=== PATIENT | female | born 1990 | race Two or more races ===

== ENCOUNTER 2018-05-12 16:15 | Inpatient (IN) | payer MEDICAID ==
[2018-05-12 16:35] VITALS: BMI 25.4
[2018-05-23] MEDS ORDERED: Levofloxacin 500 mg/D5W 100 ml Premix Bag ONE (08:51)
[2018-05-23] MEDS ORDERED: Sodium Chloride 0.9% 100 ML ONE (08:52)
[2018-05-23] MEDS ORDERED: cefTRIAXone\\ROCEPHIN 1 GM VIAL ONE (08:52)
[2018-05-23] MEDS ORDERED: Midazolam HCl 2 mg/2 ml Vial ONE ×2 (10:42→11:41)
[2018-05-23] MEDS ORDERED: Fentanyl 100 MCG/2 ML VIAL ONE (10:42)
--- NOTE | 2018-05-23 11:18 | RAD ---
ABDOMEN 1 VIEW: Date: 05/23/18 HISTORY: Staghorn calculus. COMPARISON: None. FINDINGS: Left-sided nephroureteral stent is in place and in good position. Multiple large calculi projecting o won left renal pelvis. Possible calculus projecting over the right renal pelvis. Moderate volume stool burden. IMPRESSION: 1. Satisfactory position of left nephroureterostomy catheter. 2. Large left-sided renal pelvis calculi and possible right renal calculi. POS: [facility]
[2018-05-23] MEDS ORDERED: Iothalamate Meglumine 60% 50 ML VIAL FS ONE (11:37)
--- NOTE | 2018-05-23 13:06 | OP ---
DATE OF SERVICE: 05/23/2018 PREOPERATIVE DIAGNOSES: History of left partial staghorn, left proximal ureteral calculi: Left proximal ureteral calculi 8 mm, left lower pole stone nidus 1.2 cm, left mid anterior and posterior smith measuring 1.2 x 1.4 cm, 1.2 cm, 1.6 cm, respectively. POSTOPERATIVE DIAGNOSES: History of left partial staghorn, left proximal ureteral calculi: Left proximal ureteral calculi 8 mm, left lower pole stone nidus 1.2 cm, left mid anterior and posterior smith measuring 1.2 x 1.4 cm, 1.2 cm, 1.6 cm, respectively. PROCEDURE: Cystoscopy, left retrograde pyelogram, left nephroureteral tube removal under fluoroscopic guidance. left 6x26 stent placement SURGEON: Sabra Aguirre D.O. ANESTHESIA: LMA. COMPLICATIONS: None apparent. DISPOSITION: To recovery room in stable condition. INDICATIONS FOR THE PROCEDURE AND HISTORY: Ms. Clark is a 27-year-old female whom I have seen as an inpatient consultation as she presented with history of leukocytosis, fever, UA suspicious for UTI. Her final urine culture, blood culture is negative. Her white count, normalized with no fever. Final culture negative. She underwent left nephroureteral tube placement by [facility]. I did repeat a follow up CAT scan for staging at [facility] which demonstrates that the provided access is unable to be utilized as it traverses very close to the spleen, and is between her ribs in which the excess can cause harm to spleen and her ribs. It is not a safe approach for percutaneous nephrolithotomy. Therefore, I informed the patient the nephrostomy tube should be removed. I did review her images with Dr. Douglas from Interventional Radiology. We both felt that the current access #1 was not safe to use and #2 her stones are such that we are unable to provide safe percutaneous approach for her mid pole stones, some in anterior smith; in which her colon, spleen/ribs may be an harm's way. As such, I did contact the patient that she will be offered ureteroscopy, laser lithotripsy stage ESWL possibly. Given the stone locations, she will require multiple perk access, moreover, there is also colon and spleen, and anterior location of the stone such that percutaneous access is suboptimal for her stone treatment. She verbalizes understanding and is in full understanding that her nephrostomy tube will be removed, and will have an indwelling ureteral stent and will be staged ureteroscopy, laser lithotripsy treatment at a later date. Risks and complications of the procedure was reviewed including, but not limited to, bleeding, pain, infection, injury to adjacent organs, urosepsis. All questions answered to her satisfaction, she desired to proceed without reservation. DESCRIPTION OF THE PROCEDURE: After an informed consent is signed, the patient is taken to the operating room, placed in a dorsal lithotomy position with the genital area prepped and draped in the usual surgical sterile fashion. The stones were easily visible on KUB. Her left nephroureteral tube was curled in the renal pelvis. I did pass a 0.[address] the way down to the level of the bladder. The nephrostomy ureteral tube was then released of the coil and removed uneventfully atraumatically. At this time with the cystoscope, we performed a retrograde pyelogram with 1:1 diluted contrast using a 5-Iranian open -ended catheter. The open-ended catheter was passed to the level of the upper pole without difficulty and a 6 x 26 double-J ureteral stent was passed without significant issues. All wires were removed and proper placement of the ureteral stent was visualized on fluoroscopy and on direct visualization. She tolerated the procedure well. She is discharged with ciprofloxacin for a course of 5 days; [place] 5/325, #20, 1-2 p.o. q.8 hours p.r.n. which I will inform the patient to wean. Oxybutynin 10 mg one p.o. daily #30, AZO p.r.n., Colace p.r.n. She will follow up with me tomorrow to proceed with scheduling her ureteroscopy, laser lithotripsy. [facility]
[2018-05-23] MEDS ORDERED: PROPOFOL 200 MG/20 ML VIAL ONE (13:13)
[2018-05-23] MEDS ORDERED: Lidocaine 1% PF 5 ML VIAL ONE (13:13)
[2018-05-23] MEDS ORDERED: Ondansetron HCl/PF 4 MG/2 ML Vial ONE (13:13)
--- NOTE | 2018-05-23 15:31 | RAD ---
IVP RETROGRADE: Date: 05/23/18 HISTORY: Left staghorn calculus. COMPARISON: Radiograph same date. FINDINGS: There is extensive calculi throughout the left renal collecting system. Mild dilatation of the calice s. Satisfactory location of the left double-J ureteral stent. Interval removal of the nephroureterost brandy. IMPRESSION: 1. Satisfactory location left ureteral stent. 2. Possible calculus along the proximal left ureter measuring 4.0 x 2.0 mm approximately 2.0 cm dist al to the left renal pelvis. POS: [facility]
== END 2018-05-23 13:59 | disposition home or self-care (01) | DRG 694 ==
LOC: SURG A 05-23 08:15
PROVIDERS: ADMIT Urology; ATTEND Urology
PROC: 0T778DZ Dilation of Left Ureter with Intraluminal Device, Via Natural or Artificial Opening Endoscopic (ICD-10-PCS; principal; 2018-05-23)
PROC: BT1F1ZZ Fluoroscopy of Left Kidney, Ureter and Bladder using Low Osmolar Contrast (ICD-10-PCS; 2018-05-23)
DX: N20.1 Calculus of ureter (principal)
CPT/HCPCS: 74018; 74420; C1758; C1769; J0696; J1956; J2001; J2250; J2405; J2704; J3010; J7050; Q9961

== ENCOUNTER 2018-05-16 14:35 | Outpatient (CLI) | payer MEDICAID | END 2018-05-16 14:36 | disposition home or self-care (01) | LOC: LABBT 14:35 | PROVIDERS: ATTEND Urology | DX: Z01.818 Encounter for other preprocedural examination (principal); N20.0 Calculus of kidney | CPT/HCPCS: 86850; 86900; 86901 ==

== ENCOUNTER 2018-05-16 15:01 | Outpatient (CLI) | payer MEDICAID | END 2018-05-16 15:02 | disposition home or self-care (01) | LOC: BICCT 15:01 | PROVIDERS: ATTEND Urology | DX: N20.0 Calculus of kidney (principal); K80.20 Calculus of gallbladder without cholecystitis without obstruction; N13.30 Unspecified hydronephrosis; Z96.0 Presence of urogenital implants | CPT/HCPCS: 74176; 86850; 86900; 86901 ==

== ENCOUNTER 2018-05-24 13:57 | Outpatient (CLI) | payer MEDICAID ==
[2018-05-24 14:50] LABS: Bilirubin Negative (Negative); Blood, Urine Large (Negative); Clarity CLOUDY (Clear); Glucose, Urine (Dipstick) Negative (Negative); Leukocyte Moderate (Negative); Nitrite Negative (Negative); Protein, Urine (Dipstick) 30 mg/dL (Neg-Trace); Specific Gravity, Urine 1.004 (1.002-1.036); Urobilinogen 0.2 mg/dL (0.2-1.0); pH, Urine 6.5 (5.0-9.0)
[2018-05-24 14:52] LABS: Bacteria/HPF None Seen HPF (None Seen); Hyaline Casts/LPF 4-6 HYALINE CAST LPF (0-3 Hyaline); Pathc Cast-AUWi Flag 0.87 (0-2.49)
[2018-05-24 14:58] LABS: Renal Epithelial None Seen HPF (0-3); Transitional Epithelial NONE SEEN HPF (0-3)
[2018-05-24 15:34] LABS: Hemoglobin 13.3 g/dL (12.0-16.0); Mean Corpuscular HGB CONC 32.9 g/dL (32.0-36.0); Mean Corpuscular Hemoglobin 27.7 pg (27.0-31.0); Mean Corpuscular Volume 84.2 fL (78.0-98.0); Mean Platelet Volume 8.4 fL (7.4-10.4); Platelet Count 295 thou/uL (130-400); RBC Distribution Width 11.1 % (11.5-14.5); White Blood Cell (WBC) Count 12.3 thou/uL (4.8-10.8)
[2018-05-24 15:39] LABS: BHCG - Serum Negative (NEGATIVE); Pregs Control Background? CLEAR/WHITE (CLR/WHITE); Pregs Control Bar Appear? YES (CONTROL BAR)
[2018-05-24 15:46] LABS: PTT 30.3 SEC (22.9-36.1)
[2018-05-24 15:49] LABS: Anion Gap 15 mmol/L (10-20); BUN (Urea Nitrogen) 15 mg/dL (7.0-18.7); Calc. Creatinine Clearance 0 mL/min (70-130); Calcium 9.2 mg/dL (7.8-10.44); Carbon Dioxide 21 mmol/L (22-29); Chloride 106 mmol/L (98-107); Estimated GFR-MDRD Greater than 90; Glucose 86 mg/dL (70-105); Potassium 3.6 mmol/L (3.5-5.1); Sodium 138 mmol/L (136-145)
--- NOTE | 2018-05-24 16:02 | RAD ---
CHEST 2 VIEWS: Date: 05/24/18 HISTORY: Preoperative exam. Left staghorn calculus. COMPARISON: None. FINDINGS: Normal cardiac silhouette. Pulmonary vessels and hilum are normal. No masses or consolidation. No pne umothorax or osseous abnormalities. IMPRESSION: No acute cardiopulmonary process. POS: CET
[2018-05-24 16:19] LABS: INR-International Normal Ratio 1.1
--- NOTE | 2018-05-29 16:51 | EKG ---
Test Reason : Blood Pressure : / mmHG Vent. Rate : 071 BPM Atrial Rate : 071 BPM P-R Int : 150 ms QRS Dur : 082 ms QT Int : 370 ms P-R-T Axes : 014 084 016 degrees QTc Int : 402 ms Normal sinus rhythm Normal ECG No previous ECGs available Confirmed by MARCY LAW (2) on 05/29/2018 4:50:35 PM Referred By: JUDITH Confirmed By:MARCY LAW
== END 2018-05-24 13:58 | disposition home or self-care (01) ==
LOC: LABBT 13:57
PROVIDERS: ATTEND Urology
DX: Z01.818 Encounter for other preprocedural examination (principal); N20.0 Calculus of kidney
CPT/HCPCS: 71046; 80048; 81001; 84703; 85027; 85610; 85730; 87086; 93005; 93010

== ENCOUNTER 2018-06-04 02:17 | Inpatient (IN) | payer MEDICAID, OTHER ==
[2018-06-04 02:42] LABS: Bilirubin Negative (Negative); Blood, Urine Large (Negative); Clarity CLOUDY (Clear); Glucose, Urine (Dipstick) Negative (Negative); Leukocyte Moderate (Negative); Nitrite Negative (Negative); Protein, Urine (Dipstick) Negative (Neg-Trace); Specific Gravity, Urine 1.005 (1.002-1.036); Urobilinogen 0.2 mg/dL (0.2-1.0)
[2018-06-04 02:45] LABS: Bacteria/HPF None Seen HPF (None Seen); Hyaline Casts/LPF 0-3 HYALINE CAST LPF (0-3 Hyaline); Pathc Cast-AUWi Flag 0.58 (0-2.49); RBC/HPF GREATER THAN 50-TNTC HPF (0-3)
[2018-06-04 06:40] VITALS: BMI 25.9
[2018-06-04] MEDS: cefTRIAXone\\ROCEPHIN 1 GM in Sodium Chloride 0.9% 100 ML IVPB SCH (07:21)
[2018-06-04] MEDS ORDERED: Calcium Carbonate 500 MG ChewTAB PO PRN (08:21)
[2018-06-04] MEDS ORDERED: traMADol HCl 50 MG TAB PO PRN (08:21)
[2018-06-04] MEDS ORDERED: Bisacodyl 5 MG TAB PO PRN ×2 (08:21)
[2018-06-04] MEDS ORDERED: Loratadine 10 MG TAB PO PRN (08:21)
[2018-06-04] MEDS ORDERED: Lorazepam 2 MG/ML VIAL SLOW IVP PRN (08:21)
[2018-06-04] MEDS ORDERED: Mag-Al 1200 mg/1200 mg/30 ML UDCUP PO PRN (08:21)
[2018-06-04] MEDS ORDERED: Senokot 8.6 MG TAB PO PRN ×2 (08:21)
[2018-06-04] MEDS ORDERED: hydrALAZINE 20 MG/ML VIAL SLOW IVP PRN (08:21)
[2018-06-04] MEDS ORDERED: Nitroglycerin 0.4 MG TAB (25 Tab Bottle) SL PRN (08:21)
[2018-06-04] MEDS ORDERED: Ondansetron HCl/PF 4 MG/2 ML Vial IVP PRN (08:21)
[2018-06-04] MEDS ORDERED: Benzonatate 100 MG CAP PO PRN (08:21)
[2018-06-04] MEDS ORDERED: Diabetic Tussin 200 MG/10 ML UDCUP PO PRN (08:21)
[2018-06-04] MEDS ORDERED: HYDROcodone/Acetaminophen 5/325 mg Tablet PO PRN ×2 (08:21)
[2018-06-04] MEDS: Enoxaparin Sodium 40 MG/0.4 ML SYRINGE SC SCH (09:11)
--- NOTE | 2018-06-04 10:07 | CT ---
PRELIMINARY REPORT/[facility]/EMERGENTY AFTER-HOURS PROCEDURE CT Abdomen and Pelvis Without Intravenous Contrast EXAM DATE/TIME: 06/04/2018 3:34 AM CLINICAL HISTORY: 27 years old, female; Abdominal pain; Flank; Right; TECHNIQUE: Axial computed tomography images of the abdomen and pelvis without intravenous contrast. Coronal reformatted images were created and reviewed. COMPARISON: No relevant prior studies available. FINDINGS: Lower thorax: No acute findings. ABDOMEN: Liver: Normal. No mass. Gallbladder and bile ducts: Gallbladder demonstrates stones but is without wall thickening or pericho lecystic fluid. Pancreas: Normal. No ductal dilation. Spleen: Normal. No splenomegaly. Adrenals: Normal. No mass. Kidneys and ureters: Left double J nephroureteral stent appears in satisfactory position. Multiple le ft renal stones, including 3.0 x 2.4 cm staghorn type stone noted at the interpolar level. No hydrone phrosis or perinephric stranding bilaterally. Stomach and bowel: There is moderate colonic fecal retention. Appendix: No evidence of appendicitis. PELVIS: Bladder: Unremarkable as visualized. Reproductive: Unremarkable as visualized. ABDOMEN and PELVIS: Intraperitoneal space: No free air. No significant fluid collection. Bones/joints: No acute fracture. No dislocation. Soft tissues: Unremarkable. Vasculature: No abdominal aortic aneurysm. Lymph nodes: Nonspecific increased number of left para-aortic nodes, perhaps reactive. Other findings: Mild pectus deformity. IMPRESSION: Left double J nephroureteral stent appears in satisfactory position. No hydronephrosis or perinephric stranding bilaterally. Multiple left renal stones, including 3.0 x 2.4 cm staghorn type stone noted at the interpolar level. Cholelithiasis without other findings of cholecystitis. Thank you for allowing us to participate in the care of your patient. Dictated and Authenticated by: Yousif Roger MD 06/04/2018 5:08 AM Central Time ([place] & [place]) FINAL REPORT CT ABDOMEN AND PELVIS WITHOUT CONTRAST: Comparison: 05-16-18 I agree with the preliminary report given by Dr. Dial of [facility]. POS: [facility]
--- NOTE | 2018-06-04 10:34 | CON ---
DATE OF CONSULTATION: 06/04/2018 HISTORY OF PRESENT ILLNESS: This is a 27-year-old Latin-[place]ozamb[place] female, who was transferred from [facility] in [place] yesterday evening with possible sepsis. She was tachycardi c. She had an objective temperature at home of 102.4. She also had a headache. This is all what br ought her over to the [facility]. There, her white blood cell count was elevated. Her u rinalysis there showed many white cells and red cells. It did show some moderate bacteria. She does have a left-sided ureteral stent and has left renal stones, multiple. This is not new. Dr. Violet gresham has been treating her for this. She had a nephrostomy tube in and that was removed on the of this month and a stent was placed, and she is actually for ureteroscopic procedure in 2 days from now. On talking with her further, she said that she had finished her antibiotics about a week ago an d was doing fine until 2 days ago when she started having a fever at home. She took her temperature as 102.4 yesterday morning. She took some Aleve and took a cold shower, fever went away; and then ye evening, it came back with a headache and she went to [place] [facility] for that and blo od work was done there. Urine and blood cultures were apparently fed up there and will have to be ch ecked them through the [facility]. I believe she received Zosyn there, IV piggyb ack, and here she has received Rocephin. Her temperature is now down. Her pulse is 98. She was tac hycardic, I think, in the 115-120 range, but that is gone. Her urinalysis here showed red cells, whi te cells, but no bacteria. She was also having occasional right-sided flank pain and her stone is on the left side, and for this reason, I asked them to do a noncontrast CAT scan that showed just the l eft stent to be in good position, a left proximal ureteral stone, multiple left renal stones. There is no evidence of right hydronephrosis, right ureteral or renal stone. PAST MEDICAL HISTORY: Really, otherwise, negative. PAST SURGICAL HISTORY: Negative. SOCIAL HISTORY: She has had 1 child 4 years ago through vaginal delivery. She does not take any rou virgen medicines, but she has recently been on antibiotics as well as stool softeners. She does not sm nahomi or drink. ALLERGIES: She has a possible allergy to CIPRO. PHYSICAL EXAMINATION: On exam, her abdomen is soft and minimal tenderness to the right and left uppe r quadrants without rebound or guarding. Her pelvis is soft. Her flanks are nontender, calves are n ontender. IMPRESSION: Fever with elevated white count, normal creatinine. Her white count was 14 in [place]. Creatinine was 0.82. test was negative. She is currently on Rocephin. PLAN: We will have to see what her cultures show if they come back tomorrow. Hopefully, this will n ot delay her surgery, but we will just have to see how she does over the weekend. She certainly does not look significantly ill at this time.
[2018-06-04] MEDS ORDERED: Vancomycin HCl 1.5 GM in Sodium Chloride 0.9% 250 ML 300 ML IVPB SCH (11:00)
--- NOTE | 2018-06-04 12:39 | HP ---
DATE OF ADMISSION: 06/04/2018 PRIMARY CARE PHYSICIAN: Jimmy. CHIEF COMPLAINT: Bilateral flank pain. HISTORY OF PRESENT ILLNESS: Ms. Clark is a 27-year-old female with past medical history of recent d iagnosis of a staghorn calculus who presented to the emergency room at [facility] for complaints of fever. History is mainly obtained by the patient herself and electronic medical records have been reviewed extensively. The patient recently was seen at [facility] for CVA pain and was found to have a stagho rn calculus. At that time, she underwent placement of a nephrostomy tube under IR guidance. She was seen by Urology, Dr. Aguirre over there. She was discharged. She had removal of the nephrostom y tube and placement of a stent successfully on 05/23/2018. She was started on ciprofloxacin, which she has finished about a week ago. She reports that she was doing fine up until 2 days ago when she started to have a fever at home. It was as high as 102.4 yesterday morning. It was associated with headache and generalized feeling of malaise. The fever came back shortly afterwards, so she presented to [facility] where bl ood work was done and urine and blood cultures were checked as well. She was given empiric antibioti cs and was transferred to our facility for further evaluation. Urinalysis showed multiple WBCs, red blood cells, but no bacteria. She also had a noncontrast CT scan done in the ER which showed left st ent to be in a good position with the left proximal ureteral stone and multiple left renal stones wit hout any evidence of hydronephrosis. She is scheduled to undergo a laser lithotripsy with ESWL under the care of Dr. Aguirre this coming Wednesday on 06/06/2018. Since admission to the floor, she has been evaluated by Urology, Dr. Flowers chocolate production machine operator for Dr. Doreen allen. PAST MEDICAL HISTORY: Staghorn calculus. PAST SURGICAL HISTORY: 1. Placement and removal of nephrostomy tube on the left side. 2. Left ureteral stent. SOCIAL HISTORY: She has 1 child. No history of drug, tobacco or alcohol abuse. ALLERGIES: Listed as CIPROFLOXACIN, but the patient has taken it without any difficulty recently. FAMILY HISTORY: No significant family history of renal stones, premature coronary artery disease, ca ncer or stroke. REVIEW OF SYSTEMS: A 12-point review of systems was done. It is negative except for those mentioned in the history and physical. LABORATORY DATA AND IMAGING DATA: Reviewed from 05/24/2018. No new labs were drawn yesterday. Urin alysis done yesterday showed large blood, moderate leukocyte esterase, multiple WBC, RBC, but no bact eria. CT scan of the abdomen and pelvis done on 06/04/2018 shows good placement of the left ureteral stent without any hydronephrosis or perinephric stranding and multiple left renal stones including 3 x 2.4 cm staghorn type stone at the interpolar level and cholelithiasis without cholecystitis. PHYSICAL EXAMINATION: VITAL SIGNS: Most recent vital signs; temperature 98.1, pulse of 107, respirations 16, saturating 98 % on room air, blood pressure 120/81. GENERAL: No acute distress. The patient is up and around and just came back from downstairs from [facility] and [employer] [facility]. Her mother is at bedside. HEENT: Mucous membrane is moist and pink. No oropharyngeal exudate or erythema. Head is normocepha lic, atraumatic. Pupils are equal, reactive to light and accommodation. Extraocular movement intact . NECK: Supple without any lymphadenopathy, JVD or bruit. CHEST: Clear to auscultation without any wheezing, rales or rhonchi. Rhythm is regular without any murmur, rubs or gallops. ABDOMEN: Soft, nontender, nondistended with positive bowel sounds, no CVA tenderness. EXTREMITIES: Free of any cyanosis, clubbing, or edema. NEUROLOGIC: Examination is nonfocal. SKIN: Free of any rashes or bruises. I feel warm and dry to touch. PSYCHIATRIC: Normal affect. IMPRESSION AND PLAN: 1. Urinary tract infection. Continue broad spectrum IV antibiotic. Follow the results of the urine and blood cultures. We will defer the lithotripsy and stone removal inpatient versus outpatient dec ision for Urology Team. We appreciate their help. The patient is hemodynamically stable. 2. Staghorn calculus, status post ureteral stent placement, currently stable. The patient is schedu led to undergo cystoscopy and laser lithotripsy a day from tomorrow. This can be done inpatient vers us outpatient. Urology to decide. 3. Deep venous thrombosis and gastrointestinal prophylaxis. 4. Start diet as the patient is not scheduled for any procedure for now. 5. Follow labs in the morning. DISPOSITION: Ms. Clark is currently being admitted to the hospital for UTI related to her staghorn calculus. Estimated length of stay is at least 2-3 midnights. Further management will depend upon h er clinical course.
[2018-06-04] MEDS: Acetaminophen 325 MG TAB PO PRN ×2 (15:20→20:47)
[2018-06-05] MEDS: cefTRIAXone\\ROCEPHIN 1 GM in Sodium Chloride 0.9% 100 ML IVPB SCH (05:10)
[2018-06-05 05:41] LABS: #Eosinphils 0.3 thou/uL (0.0-0.7); #Lymphocytes 2.2 thou/uL (1.20-3.40); #Neutrophils 7.5 thou/uL (1.40-6.50); %Basophils 0.2 % (0.0-1.0); %Eosinophils 2.5 % (0.0-10.0); %Lymphocytes 20.1 % (21.0-51.0); %Monocytes 9.3 % (0.0-10.0); %Neutrophils 67.8 % (42.0-75.0); Mean Corpuscular HGB CONC 32.9 g/dL (32.0-36.0); Mean Corpuscular Hemoglobin 27.8 pg (27.0-31.0); Mean Corpuscular Volume 84.3 fL (78.0-98.0); Mean Platelet Volume 8.5 fL (7.4-10.4); Platelet Count 145 thou/uL (130-400); RBC Distribution Width 11.1 % (11.5-14.5); Red Blood Cell (RBC) Count 4.33 mill/uL (4.20-5.40); White Blood Cell (WBC) Count 11.1 thou/uL (4.8-10.8)
[2018-06-05 06:05] LABS: Anion Gap 9 mmol/L (10-20); BUN (Urea Nitrogen) 10 mg/dL (7.0-18.7); Calc. Creatinine Clearance 116 mL/min (70-130); Calcium 8.8 mg/dL (7.8-10.44); Carbon Dioxide 25 mmol/L (22-29); Chloride 108 mmol/L (98-107); Estimated GFR-MDRD Greater than 90; Glucose 92 mg/dL (70-105); Sodium 138 mmol/L (136-145)
[2018-06-05] MEDS: Enoxaparin Sodium 40 MG/0.4 ML SYRINGE SC SCH (10:24)
--- NOTE | 2018-06-05 12:51 | PDOC.PN ---
- Subjective Encounter Start Date: 06/05/18 Encounter Start Time: 12:49 Subjective: no new complaints. no overnight events -: good appatite.walking around in [place] w/o pain -: Nl BMs - Objective MAR Reviewed: Yes Vital Signs & Weight: Vital Signs (12 hours) Temp Pulse Resp BP Pulse Ox 06/05/18 08:00 98 06/05/18 07:38 98.5 F 67 16 116/74 98 Weight Weight 124 lb I&O: 06/04/18 06/05/18 06/06/18 06:59 06:59 06:59 Intake Total 670 240 Balance 670 240 Result Diagrams: 06/05/18 05:00 06/05/18 05:00 Additional Labs: Microbiology 05/24/18 14:42 Urine clean catch Urine Culture - Final NO GROWTH AT 48 HOURS 05/12/18 14:58 Urine Straight Catheter Urine Culture - Final NO GROWTH AT 48 HOURS Laboratory Tests 05/24/18 06/05/18 15:00 05:00 WBC 12.3 H 11.1 H Phys Exam - Physical Examination Constitutional: NAD HEENT: PERRLA, moist MMs, sclera anicteric, oral pharynx no lesions Neck: no nodes, no JVD, supple, full ROM Respiratory: no wheezing, no rales, no rhonchi, clear to auscultation bilateral Cardiovascular: RRR, no significant murmur, no rub Gastrointestinal: soft, non-tender, no distention, positive bowel sounds no CVA tenderness Musculoskeletal: no edema, pulses present Neurological: non-focal, normal sensation, moves all 4 limbs Psychiatric: normal affect, A&O x 3 Skin: no rash Dx/Plan (1) UTI (urinary tract infection) Status: Acute (2) Staghorn calculus Code(s): N20.0 - CALCULUS OF KIDNEY Status: Acute - Plan plan discussed w/ family, continue antibiotics, out of bed/ambulate cont empiric ABx. [place] cx results unavialbale -: repeat urine Cx sent from admission sample -: zelalem ESWL /cystoscopy tomorrow per urology -: HD stable. * . Review of Systems - Review of Systems Constitutional: negative: fever, chills, sweats, weakness, malaise, other ENT: negative: Ear Pain, Ear Discharge, Nose Pain, Nose Discharge, Nose Congestion, Mouth Pain, Mouth Swelling, Throat Pain, Throat Swelling, Other Respiratory: negative: Cough, Dry, Shortness of Breath, Hemoptysis, SOB with Excertion, Pleuritic Pain, Sputum, Wheezing Cardiovascular: negative: chest pain, palpitations, orthopnea, paroxysmal nocturnal dyspnea, edema, light headedness, other Gastrointestinal: negative: Nausea, Vomiting, Abdominal Pain, Diarrhea, Constipation, Melena, Hematochezia, Other Genitourinary: negative: Dysuria, Frequency, Incontinence, Hematuria, Retention , Other Musculoskeletal: negative: Neck Pain, Shoulder Pain, Arm Pain, Back Pain, Hand Pain, Leg Pain, Foot Pain, Other Skin: negative: Rash, Lesions, Karthikeyan, Bruising, Other Neurological: negative: Weakness, Numbness, Incoordination, Change in Speech, Confusion, Seizures, Other - Medications/Allergies Allergies/Adverse Reactions: Allergies Allergy/AdvReac Type Severity Reaction Status Date / Time ciprofloxacin [From Cipro] Allergy Hives Verified 06/04/18 07:33 clove Allergy Verified 06/04/18 07:33 Medications: Current Medications Acetaminophen (Tylenol) 650 mg PO Q4H PRN PRN Reason: Headache/Fever or Pain Last Admin: 06/04/18 20:47 Dose: 650 mg Hydrocodone Bitart/Acetaminophen ([place] 5/325) 1 tab PO Q4H PRN PRN Reason: Moderate Pain (4-6) Hydrocodone Bitart/Acetaminophen ([place] 5/325) 2 tab PO Q4H PRN PRN Reason: Severe Pain (7-10) Al Hydroxide/Mg Hydroxide (Maalox) 30 ml PO Q6H PRN PRN Reason: Heartburn or Indigestion Benzonatate (Tessalon) 100 mg PO Q4H PRN PRN Reason: Cough Bisacodyl (Dulcolax) 10 mg PO DAILYPRN PRN PRN Reason: Constipation Bisacodyl (Dulcolax) 10 mg PO DAILYPRN PRN PRN Reason: Constipation Calcium Carbonate (Tums) 1,000 mg PO Q4H PRN PRN Reason: Heartburn or Indigestion Enoxaparin Sodium (Lovenox) 40 mg SC 0900 CARLOS EDUARDO Last Admin: 06/05/18 10:24 Dose: 40 mg Guaifenesin (Robitussin Sf) 200 mg PO Q4H PRN PRN Reason: Cough Hydralazine HCl (Apresoline) 10 mg SLOW IVP Q4H PRN PRN Reason: Systolic BP > 170 Ceftriaxone Sodium 1 gm/ (Sodium Chloride) 100 mls @ 200 mls/hr IVPB Q24HR [facility] Stop: 06/09/18 05:31 Last Admin: 06/05/18 05:10 Dose: 100 mls Loratadine (Claritin) 10 mg PO DAILYPRN PRN PRN Reason: Sinus Symptoms Lorazepam (Ativan) 1 mg SLOW IVP Q4H PRN PRN Reason: Anxiety/Agitation Morphine Sulfate (Morphine) 2 mg SLOW IVP Q4H PRN PRN Reason: Severe Pain (7-10) Nitroglycerin (Nitrostat) 0.4 mg SL Q5MIN PRN PRN Reason: Chest Pain Ondansetron HCl (Zofran) 4 mg IVP Q6H PRN PRN Reason: Nausea/Vomiting Senna (Senokot) 2 tab PO HSPRN PRN PRN Reason: Constipation Senna (Senokot) 2 tab PO HSPRN PRN PRN Reason: Constipation Sodium Chloride (Flush - Normal Saline) 10 ml IVF Q12HR [facility] Last Admin: 06/05/18 10:25 Dose: 10 ml Sodium Chloride (Flush - Normal Saline) 10 ml IVF PRN PRN PRN Reason: Saline Flush Tramadol HCl (Ultram) 50 mg PO Q4H PRN PRN Reason: Moderate Pain (4-6)
--- NOTE | 2018-06-05 15:22 | CON ---
DATE OF CONSULTATION: 06/05/2018 REASON FOR HOSPITAL ADMISSION AND CONSULTATION: 1. Possible sepsis with tachycardia. The patient had subjective fever at home of 102.4. 2. Left-sided kidney stone. HISTORY OF PRESENT ILLNESS: Ms. Nicolette Clark is a pleasant 27-year-old white female patient of Dr. Sabra Aguirre with a history of a left-sided kidney stone. She had a previous percutaneo us nephrostomy tube recently had that exchanged for a stent which is in place at the present time. T he patient developed a fever of 102.4 in the evening of 06/03/2018 and subsequently was brought from the [facility] to the OR into the [facility] for evaluation and t reatment. The patient underwent initial evaluation and was also seen by Dr. Julián Flowers, who did the original consultation on 06/04/2018. INTERVAL EVENTS: The patient has improved on antibiotic therapy with ceftriaxone. Today is reportin g that she is feeling much better. Patient's laboratory evaluation shows that she had improvement in her white count to 11.1 thousand today, but her left shift is mostly improved percent neutrophils do wn to 67.8 and the ANC is down to 7.5. The patient reports that she is no longer feeling sick. PHYSICAL EXAMINATION: VITAL SIGNS: Temperature 98.5. The patient is afebrile and has been throughout the current hospital ization after the ER assessment. Pulse is 67, respirations 16, O2 saturations 98% on room air, blood pressure is 116/74. HEAD, EYES, EARS, NOSE, AND THROAT: Extraocular movements are intact. Sclerae are anicteric. Oroph arynx is clear. NECK: Supple. LUNGS: Clear to auscultation bilaterally. CARDIAC: Regular rate and rhythm without murmur, rub or gallop. ABDOMEN: Soft and nontender. BACK: Notable for a small percutaneous nephrostomy tube site on the left side which is well healed. There is no true costovertebral angle tenderness on either side today. PELVIC: Deferred. LABORATORY DATA: Microbiology remains pending. Remainder of the laboratory evaluation is as previou rodri noted. ASSESSMENT AND PLAN: Left-sided kidney stone. The patient is scheduled for outpatient surgery with Dr. Aguirre who will leave the patient inhouse as her white count is not completely resolved, mari pite the fact she has improved somewhat. The patient will remain on antibiotic coverage as being dir ected by the Hospitalist Service. The patient probably will undergo evaluation and treatment by Dr. Aguirre tomorrow. Additional items; cultures not yet available if drawn.
[2018-06-06] MEDS: cefTRIAXone\\ROCEPHIN 1 GM in Sodium Chloride 0.9% 100 ML IVPB SCH (05:21)
--- NOTE | 2018-06-06 07:45 | PRG ---
DATE OF SERVICE: 06/06/2018 SUBJECTIVE: The patient is feeling better, wants to go home. PHYSICAL EXAMINATION: VITAL SIGNS: Stable, afebrile. ABDOMEN: Soft, nontender, nondistended. No CVA tenderness, currently on Rocephin. LABORATORY DATA: White count on admission 06/05/2018 is 11 with no significant shift. Renal function stable at 0.66. Repeat urine culture on this admission demonstrates no bacteria, 7-10 squamous epithelial, greater than 50 RBCs, 11-20 WBCs. Repeat culture is pending. Urine culture 05/24/2018 at [facility] is negative. Urine culture reviewed from [facility] on presentation this weekend demonstrates greater than 100,000 CFUs, sensitivity and identity is pending. Blood culture is negative thus far. CT repeat reviewed demonstrating left ureteral stent in good position with no evidence of hydronephrosis. Large stone burden stable. IMPRESSION AND PLAN: Ms. Clark is a 27-year-old female with history of large left partial staghorn previous percutaneous access was suboptimal to proceed with PCNL as it was very close to her spleen. The patient currently has a stent , was scheduled for ureteroscopy, laser lithotripsy today, which will need to be deferred as she presents with UTI. She will stay in house with IV Rocephin until final sensitivity and culture identified from [facility]. We will call to Microbiology this afternoon to see when it will finalize. If it finalizes, the patient is anxious to go home. She has been fully informed regarding rationale deferring ureteroscopy, laser lithotripsy as she presents with an active urinary tract infection. addendum: Spoke with [facility]ology, final sensitivity and identification will be finalized tomorrow morning. As such recommend patient seen in house until this is reviewed. Her surgery has been tentatively reschedule to June 20. AGUEDA
[2018-06-06] MEDS: Enoxaparin Sodium 40 MG/0.4 ML SYRINGE SC SCH ×2 (08:26→12:21)
[2018-06-06 11:07] LABS: Bilirubin Negative (Negative); Blood, Urine Large (Negative); Clarity CLOUDY (Clear); Glucose, Urine (Dipstick) Negative (Negative); Leukocyte Moderate (Negative); Nitrite Negative (Negative); Protein, Urine (Dipstick) Negative (Neg-Trace); Urobilinogen 0.2 mg/dL (0.2-1.0); pH, Urine 6.5 (5.0-9.0)
[2018-06-06 11:11] LABS: Bacteria/HPF None Seen HPF (None Seen); Hyaline Casts/LPF 4-6 HYALINE CAST LPF (0-3 Hyaline); Pathc Cast-AUWi Flag 0.58 (0-2.49); RBC/HPF 21-50 HPF (0-3); Renal Epithelial None Seen HPF (0-3); Transitional Epithelial NONE SEEN HPF (0-3); WBC/HPF 21-50 HPF (0-3)
--- NOTE | 2018-06-06 13:31 | PDOC.PN ---
- Subjective Encounter Start Date: 06/06/18 Encounter Start Time: 13:29 Subjective: feels much better. eating well. walking around -: No abd pain/N/V/D. NL Bms - Objective MAR Reviewed: Yes Vital Signs & Weight: Vital Signs (12 hours) Temp Pulse Resp BP Pulse Ox 06/06/18 08:26 96 06/06/18 07:24 98.5 F 109 H 18 118/78 96 06/06/18 05:00 97.5 F L 98 16 116/73 98 Weight Weight 124 lb I&O: 06/05/18 06/06/18 06/07/18 06:59 06:59 06:59 Intake Total 670 1290 Balance 670 1290 Result Diagrams: 06/05/18 05:00 06/05/18 05:00 Additional Labs: Microbiology 05/24/18 14:42 Urine clean catch Urine Culture - Final NO GROWTH AT 48 HOURS 05/12/18 14:58 Urine Straight Catheter Urine Culture - Final NO GROWTH AT 48 HOURS 06/04/18 02:37 Urine clean catch Urine Culture - Preliminary NO GROWTH AT 24 HOURS Phys Exam - Physical Examination Constitutional: NAD HEENT: PERRLA, moist MMs, sclera anicteric, oral pharynx no lesions Neck: no nodes, no JVD, supple, full ROM Respiratory: no wheezing, no rales, no rhonchi, clear to auscultation bilateral Cardiovascular: RRR, no significant murmur, no rub Gastrointestinal: soft, non-tender, no distention, positive bowel sounds Musculoskeletal: no edema, pulses present Neurological: non-focal, normal sensation, moves all 4 limbs Psychiatric: normal affect, A&O x 3 Skin: no rash Dx/Plan (1) UTI (urinary tract infection) Status: Acute (2) Staghorn calculus Code(s): N20.0 - CALCULUS OF KIDNEY Status: Acute - Plan plan discussed w/ family, continue antibiotics Empiric Abx till final urine Cx available. -: zelalem HOWE home on PO soon once Cx finalizes -: OP Sx for staghorn calculus removal. * . Review of Systems - Review of Systems Constitutional: negative: fever, chills, sweats, weakness, malaise, other ENT: negative: Ear Pain, Ear Discharge, Nose Pain, Nose Discharge, Nose Congestion, Mouth Pain, Mouth Swelling, Throat Pain, Throat Swelling, Other Respiratory: negative: Cough, Dry, Shortness of Breath, Hemoptysis, SOB with Excertion, Pleuritic Pain, Sputum, Wheezing Cardiovascular: negative: chest pain, palpitations, orthopnea, paroxysmal nocturnal dyspnea, edema, light headedness, other Gastrointestinal: negative: Nausea, Vomiting, Abdominal Pain, Diarrhea, Constipation, Melena, Hematochezia, Other Genitourinary: negative: Dysuria, Frequency, Incontinence, Hematuria, Retention , Other Musculoskeletal: negative: Neck Pain, Shoulder Pain, Arm Pain, Back Pain, Hand Pain, Leg Pain, Foot Pain, Other Neurological: negative: Weakness, Numbness, Incoordination, Change in Speech, Confusion, Seizures, Other - Medications/Allergies Allergies/Adverse Reactions: Allergies Allergy/AdvReac Type Severity Reaction Status Date / Time ciprofloxacin [From Cipro] Allergy Hives Verified 06/04/18 07:33 clove Allergy Verified 06/04/18 07:33 Medications: Current Medications Acetaminophen (Tylenol) 650 mg PO Q4H PRN PRN Reason: Headache/Fever or Pain Last Admin: 06/04/18 20:47 Dose: 650 mg Hydrocodone Bitart/Acetaminophen ([place] 5/325) 1 tab PO Q4H PRN PRN Reason: Moderate Pain (4-6) Hydrocodone Bitart/Acetaminophen ([place] 5/325) 2 tab PO Q4H PRN PRN Reason: Severe Pain (7-10) Al Hydroxide/Mg Hydroxide (Maalox) 30 ml PO Q6H PRN PRN Reason: Heartburn or Indigestion Benzonatate (Tessalon) 100 mg PO Q4H PRN PRN Reason: Cough Bisacodyl (Dulcolax) 10 mg PO DAILYPRN PRN PRN Reason: Constipation Bisacodyl (Dulcolax) 10 mg PO DAILYPRN PRN PRN Reason: Constipation Calcium Carbonate (Tums) 1,000 mg PO Q4H PRN PRN Reason: Heartburn or Indigestion Enoxaparin Sodium (Lovenox) 40 mg SC 0900 [facility] Last Admin: 06/06/18 12:21 Dose: 40 mg Guaifenesin (Robitussin Sf) 200 mg PO Q4H PRN PRN Reason: Cough Hydralazine HCl (Apresoline) 10 mg SLOW IVP Q4H PRN PRN Reason: Systolic BP > 170 Ceftriaxone Sodium 1 gm/ (Sodium Chloride) 100 mls @ 200 mls/hr IVPB Q24HR [facility] Stop: 06/09/18 05:31 Last Admin: 06/06/18 05:21 Dose: 100 mls Loratadine (Claritin) 10 mg PO DAILYPRN PRN PRN Reason: Sinus Symptoms Lorazepam (Ativan) 1 mg SLOW IVP Q4H PRN PRN Reason: Anxiety/Agitation Morphine Sulfate (Morphine) 2 mg SLOW IVP Q4H PRN PRN Reason: Severe Pain (7-10) Nitroglycerin (Nitrostat) 0.4 mg SL Q5MIN PRN PRN Reason: Chest Pain Ondansetron HCl (Zofran) 4 mg IVP Q6H PRN PRN Reason: Nausea/Vomiting Senna (Senokot) 2 tab PO HSPRN PRN PRN Reason: Constipation Senna (Senokot) 2 tab PO HSPRN PRN PRN Reason: Constipation Sodium Chloride (Flush - Normal Saline) 10 ml IVF Q12HR [facility] Last Admin: 06/06/18 08:26 Dose: 10 ml Sodium Chloride (Flush - Normal Saline) 10 ml IVF PRN PRN PRN Reason: Saline Flush Tramadol HCl (Ultram) 50 mg PO Q4H PRN PRN Reason: Moderate Pain (4-6)
[2018-06-07] MEDS: cefTRIAXone\\ROCEPHIN 1 GM in Sodium Chloride 0.9% 100 ML IVPB SCH (04:58)
[2018-06-07] MEDS: Enoxaparin Sodium 40 MG/0.4 ML SYRINGE SC SCH (07:48)
[2018-06-07 08:46] VITALS: BP 105/66; TEMP 98.5
--- NOTE | 2018-06-07 10:43 | PRG ---
DATE OF SERVICE: 06/07/2018 SUBJECTIVE: The patient is without complaints, doing well. OBJECTIVE: VITAL SIGNS: Stable. ABDOMEN: Soft, nontender, nondistended. No CVA tenderness. LABORATORY DATA: Repeat urine culture in house negative thus far. Currently on Rocephin. IMPRESSION AND PLAN: A 27-year-old female with history of left partial staghorn status post stent. 1. Admitted for febrile urinary tract infection. Culture is pending. I did check at [facility], greater than 100,000 Staph species are noted. Blood culture negative. Her ID and sensitivity should finalize this afternoon. We will notify primary service when available for discharge this afternoon. She has followup appointment with me in chart, ureteroscopy has been rescheduled. The patient informed. Addendum: Culture from [facility] reviewed. Blood culture negative at 48 hours. Urine culture demonstrates MRSA: Resistant to quinolone, sensitive to Macrobid, Bactrim, vancomycin. Patient has had multiple urinalysis, which appeared to be contaminated. MRSA UA demonstrates trace epithelials. As she did present with fever, with urine culture demonstrating MRSA, it would be prudent to involve infectious disease. She will require multiple surgical intervention, due to extent of her left partial staghorn. She has responded to Rocephin with defervesced since with no significant leukocytosis. I would be okay with patient being discharged with oral antibiotic regimen if okay with infectious disease. MTDD
--- NOTE | 2018-06-07 11:30 | PQF ---
CLINICAL DOCUMENTATION IMPROVEMENT CLARIFICATION FORM: ICD-10 Updated PLEASE DO AN ADDENDUM TO THE PROGRESS NOTE WITH ANY DOCUMENTATION UPDATES OR ADDITIONS AND CARRY THROUGH TO DC SUMMARY. THANK YOU. DATE: 06/07 ATTN: DR. EFRAIN TORRES Please exercise your independent, professional judgment in responding to the clarification form. Clinical indicators are provided on the bottom of this form for your review. Please check appropriate box(es): [ ] Sepsis due to: (Pna, UTI, gangrenous gall bladder, etc.) [ X ] Localized infection without sepsis [ ] Other diagnosis [ ] Unable to determine For continuity of documentation, please document condition throughout progress notes and discharge summary. Thank You. CLINICAL INDICATORS - SIGNS / SYMPTOMS / LABS ER PRESENTATION 06/04: WBC: 11.1 HR: 115 PT REPORTS FEVER STARTING YESTERDAY ER PHYSICIAN DOCUMENTATION 06/04: TRANSFER FROM [facility]. LEUKOCYTOSIS, TACHYCARDIA, FEVER AT OUTSIDE ER. MEETS SEPSIS CRITERIA. SUSPECTED SOURCE OF SEPSIS IS UTI. ER FINAL DIAGNOSES: SEPSIS FROM UTI H&P DOCUMENTATION 06/04: HX OF PRESENT ILLNESS: ...PAST MEDICAL HX OF RECENT DIAGNOSIS OF STAGHORN CALCULUS WHO PRESENTED TO THE ER AT [facility] FOR COMPLAINTS OF FEVER. ...SHE REPORTS DOING FINE UP UNTIL 2 DAYS AGO WHEN SHE STARTED TO HAVE A FEVER AT HOME. IT WAS HIGH 102.4 YESTERDAY MORNING. RISK FACTORS: UTI STAGHORN CALCULUS TREATMENTS: IV ANTIBIOTICS (ZOSYN 06/04 AT [facility] ER; VANCOMYCIN 06/04; ROCEPHIN 06/04 - PRESENT) UROLOGY CONSULT THANK YOU! Kaylynn (This form is maintained as a part of the permanent medical record) 2014 [employer] All Rights Reserved Kaylynn Jewell RN, BSN [email or web address] Office: [phone] [facility]
--- NOTE | 2018-06-07 14:36 | PDOC.PN ---
- Subjective Encounter Start Date: 06/07/18 Encounter Start Time: 14:35 Subjective: feels well. no new complaints - Objective MAR Reviewed: Yes Vital Signs & Weight: Vital Signs (12 hours) Temp Pulse Resp BP BP Pulse Ox 06/07/18 08:00 98.5 F 88 16 105/66 97 06/07/18 04:00 98.3 F 90 16 114/74 98 Weight Weight 124 lb I&O: 06/06/18 06/07/18 06/08/18 06:59 06:59 06:59 Intake Total 1290 1080 Balance 1290 1080 Result Diagrams: 06/05/18 05:00 06/05/18 05:00 Additional Labs: Microbiology 06/04/18 02:37 Urine clean catch Urine Culture - Final NO GROWTH AT 48 HOURS 05/24/18 14:42 Urine clean catch Urine Culture - Final NO GROWTH AT 48 HOURS 05/12/18 14:58 Urine Straight Catheter Urine Culture - Final NO GROWTH AT 48 HOURS 06/06/18 10:19 Urine Straight Catheter Urine Culture - Preliminary NO GROWTH AT 24 HOURS Phys Exam - Physical Examination Constitutional: NAD HEENT: PERRLA, moist MMs, sclera anicteric, oral pharynx no lesions Neck: no nodes, no JVD, supple, full ROM Respiratory: no wheezing, no rales, no rhonchi, clear to auscultation bilateral Cardiovascular: RRR, no significant murmur, no rub Gastrointestinal: soft, non-tender, no distention, positive bowel sounds Musculoskeletal: no edema, pulses present Neurological: non-focal, normal sensation, moves all 4 limbs Psychiatric: normal affect, A&O x 3 Skin: no rash Dx/Plan (1) UTI (urinary tract infection) Status: Acute Comment: MRSA in Urine Cx from [facility] (2) Staghorn calculus Code(s): N20.0 - CALCULUS OF KIDNEY Status: Acute - Plan DVT proph w/SCDs ID consult. clinically better. -: likley home soon on PO Abx . -: discussed w Urology briefly. * . Review of Systems - Review of Systems Constitutional: negative: fever, chills, sweats, weakness, malaise, other ENT: negative: Ear Pain, Ear Discharge, Nose Pain, Nose Discharge, Nose Congestion, Mouth Pain, Mouth Swelling, Throat Pain, Throat Swelling, Other Respiratory: negative: Cough, Dry, Shortness of Breath, Hemoptysis, SOB with Excertion, Pleuritic Pain, Sputum, Wheezing Cardiovascular: negative: chest pain, palpitations, orthopnea, paroxysmal nocturnal dyspnea, edema, light headedness, other Gastrointestinal: negative: Nausea, Vomiting, Abdominal Pain, Diarrhea, Constipation, Melena, Hematochezia, Other Genitourinary: negative: Dysuria, Frequency, Incontinence, Hematuria, Retention , Other Musculoskeletal: negative: Neck Pain, Shoulder Pain, Arm Pain, Back Pain, Hand Pain, Leg Pain, Foot Pain, Other Neurological: negative: Weakness, Numbness, Incoordination, Change in Speech, Confusion, Seizures, Other - Medications/Allergies Allergies/Adverse Reactions: Allergies Allergy/AdvReac Type Severity Reaction Status Date / Time ciprofloxacin [From Cipro] Allergy Hives Verified 06/04/18 07:33 clove Allergy Verified 06/04/18 07:33 Medications: Current Medications Acetaminophen (Tylenol) 650 mg PO Q4H PRN PRN Reason: Headache/Fever or Pain Last Admin: 06/04/18 20:47 Dose: 650 mg Hydrocodone Bitart/Acetaminophen ([place] 5/325) 1 tab PO Q4H PRN PRN Reason: Moderate Pain (4-6) Hydrocodone Bitart/Acetaminophen ([place] 5/325) 2 tab PO Q4H PRN PRN Reason: Severe Pain (7-10) Al Hydroxide/Mg Hydroxide (Maalox) 30 ml PO Q6H PRN PRN Reason: Heartburn or Indigestion Benzonatate (Tessalon) 100 mg PO Q4H PRN PRN Reason: Cough Bisacodyl (Dulcolax) 10 mg PO DAILYPRN PRN PRN Reason: Constipation Bisacodyl (Dulcolax) 10 mg PO DAILYPRN PRN PRN Reason: Constipation Calcium Carbonate (Tums) 1,000 mg PO Q4H PRN PRN Reason: Heartburn or Indigestion Enoxaparin Sodium (Lovenox) 40 mg SC 0900 [facility] Last Admin: 06/07/18 07:48 Dose: Not Given Guaifenesin (Robitussin Sf) 200 mg PO Q4H PRN PRN Reason: Cough Hydralazine HCl (Apresoline) 10 mg SLOW IVP Q4H PRN PRN Reason: Systolic BP > 170 Ceftriaxone Sodium 1 gm/ (Sodium Chloride) 100 mls @ 200 mls/hr IVPB Q24HR [facility] Stop: 06/09/18 05:31 Last Admin: 06/07/18 04:58 Dose: 100 mls Loratadine (Claritin) 10 mg PO DAILYPRN PRN PRN Reason: Sinus Symptoms Lorazepam (Ativan) 1 mg SLOW IVP Q4H PRN PRN Reason: Anxiety/Agitation Morphine Sulfate (Morphine) 2 mg SLOW IVP Q4H PRN PRN Reason: Severe Pain (7-10) Nitroglycerin (Nitrostat) 0.4 mg SL Q5MIN PRN PRN Reason: Chest Pain Ondansetron HCl (Zofran) 4 mg IVP Q6H PRN PRN Reason: Nausea/Vomiting Senna (Senokot) 2 tab PO HSPRN PRN PRN Reason: Constipation Senna (Senokot) 2 tab PO HSPRN PRN PRN Reason: Constipation Sodium Chloride (Flush - Normal Saline) 10 ml IVF Q12HR [facility] Last Admin: 06/07/18 07:48 Dose: Not Given Sodium Chloride (Flush - Normal Saline) 10 ml IVF PRN PRN PRN Reason: Saline Flush Tramadol HCl (Ultram) 50 mg PO Q4H PRN PRN Reason: Moderate Pain (4-6)
--- NOTE | 2018-06-08 03:25 | CON ---
DATE OF CONSULTATION: 06/07/2018 REASON FOR CONSULTATION: Complicated urinary tract infection. HISTORY OF PRESENT ILLNESS: A 27-year-old who has a staghorn calculus and calculi in the opposite ki gibran, who was status post percutaneous nephrostomy done at [facility] few days ago. The patient at that time had a coagulase negative Staph, which was methicillin resistant. She was discharged on ciprofloxacin before the full susceptibility profile of the urine cultures had been reported. She i s now readmitted by Dr. Aguirre. In the meantime, the patient had a stent placed and the percuta neous nephrostomy removed. She developed flank pain and fever up to 102.4, some headaches, general m alaise and she was admitted. Thus far the two urine samples are negative. She has negative blood cu ltures. She is feeling much better after she received ceftriaxone. She denies any headaches, visual symptoms, sore throat, odynophagia, dysphagia, no cough or sputum production or chest pain, no abdom inal pain or diarrhea. A little bit of flank pain, which has improved. PAST MEDICAL HISTORY: Staghorn calculus. PAST SURGICAL HISTORY: Nephrostomy tube placement and then the left ureteral stent. SOCIAL HISTORY: One child. Never smoker. ALLERGIES: CIPRO, but that has not been confirmed since she was exposed to it recently without probl ems. FAMILY HISTORY: Noncontributory. PHYSICAL EXAMINATION: VITAL SIGNS: Essentially normal since admission with no fever. SKIN: Normal. She has a peripheral IV access. HEENT: Noncontributory. NECK: Supple. LUNGS: With symmetric clear breath sounds. ABDOMEN: Normal. No tenderness, no distention or ascites, no organomegaly, no bladder distention. EXTREMITIES: No joint inflammatory activity. Moves extremities equally. LABORATORY DATA: White cell count 11.1, hemoglobin 12, platelets 145 with 67% neutrophils, 20% lymph ocytes. Sodium 138, creatinine 0.6. Urinalysis, 21-50 wbc's. Cultures thus far no growth at 24 yanni rs. ASSESSMENT AND DISCUSSION: Staghorn calculus with the procedure noted above, now admitted with again recurrence of fever. The patient had been scheduled for lithotripsy which had to be canceled. She is better now and based on the microbiology from [facility], I would advise transition to oral B actrim and treated daily until after the procedure. We will have to continue monitoring her urine cu ltures to final results to make sure that she does not have any additional pathogen.
--- NOTE | 2018-06-08 08:27 | DIS ---
DATE OF ADMISSION: 06/04/2018 DATE OF DISCHARGE: 06/07/2018 CONDITION AT THE TIME OF DISCHARGE: Stable and improved. DISCHARGE DISPOSITION: Home. PRIMARY CARE PHYSICIAN: [facility] physician, Dr. Perry in [place]. INHOUSE CONSULTATIONS: 1. Urology, Dr. Quintero and Dr. Aguirre. 2. Infectious Disease, Dr. Cortez. PROCEDURES DONE IN THE HOSPITAL: CT scan of the abdomen and pelvis upon presentation, which shows f indings of satisfactory position of left double-J nephroureteral stent without hydronephrosis or demetrio nephric stranding. Multiple renal stone seen on the left side with a 3 x 2.4 cm staghorn calculus in the interpolar level. Cholelithiasis without cholecystitis. DISCHARGE DIAGNOSES: 1. Urinary tract infection without sepsis. 2. Staghorn calculus. DISCHARGE MEDICATIONS: Bactrim double-strength 1 tablet p.o. b.i.d. for at least 4 weeks. HISTORY OF PRESENT ILLNESS: Ms. Clark is a 27-year-old female with known history of staghorn calcul us recently diagnosed as an outpatient, status post placement of a nephrostomy tube at [facility] with subsequent removal by Urology, Dr. Aguirre and presented to the emergency room wi th complaints of bilateral flank pain. She has finished outpatient course of ciprofloxacin and remov al of the nephrostomy tube and left nephroureteral stent placement on 05/23/[address] Aguirre. She came to the ER with 2-day complaints of high-grade fever, headache, malaise, and bilateral flank pain. In [facility] mis blood culture and urine culture and she was transferred to our facility for further evaluation and workup. Urinalysis showed multiple wbcs and rbcs, but no bacter ia. A noncontrast CT done in the ER showed left stent to be in good position and no specific evidenc e of pyelonephritis. She was started on empiric antibiotics again and Urology was consulted. Please see admission history and physical for further detail. HOSPITAL COURSE: Dr. Flowers and then Dr. Aguirre saw the patient and followed the patient along. She was continued on empiric and IV antibiotics namely Rocephin and levofloxacin. She had signific ant clinical improvement within 48 hours. Repeat urine and blood cultures were obtained and followed and were negative until date of discharge. Dr. Aguirre followed at [facility] culture and it came back positive for MRSA. It was sensitive to Bactrim, Macrobid, and vancomycin . Infectious Disease, Dr. Cortez was consulted and after discussion, it was decided between Dr. Sabina ortiz and Dr. Cortez that the patient can be discharged on oral antibiotics as she is doing from ____ _ Infectious Disease standpoint of view. She has no fever, leukocytosis or any symptoms at this time . She is walking around the hallways and eating a normal diet without any pain or nausea or vomiting . She was given prescriptions for Bactrim double strength b.i.d. as instructed by Dr. Cortez. She wi ll follow up with Dr. Aguirre in the outpatient setting for further treatment for the staghorn ca lculus. Her appointment with Dr. Aguirre is on 06/16/2018 at 3:30 p.m. She was seen and examined prior to discharge and discharge plan was discussed with the patient who ve rbalized understanding. All questions were answered. Please see hospitalist progress note from to y's date for further detail including [id number] interaction. Total time spent in the discharge of this patient 32 minutes.
== END 2018-06-07 18:25 | disposition home or self-care (01) | DRG 690 ==
LOC: ERS 02:17 → T4-B 06:27
PROVIDERS: ADMIT Hospitalist; ATTEND Hospitalist
DX: N39.0 Urinary tract infection, site not specified (principal); N20.0 Calculus of kidney; K80.20 Calculus of gallbladder without cholecystitis without obstruction; B95.62 Methicillin resistant Staphylococcus aureus infection as the cause of diseases classified elsewhere; Z96.0 Presence of urogenital implants; Z88.1 Allergy status to other antibiotic agents
CPT/HCPCS: 36415; 74176; 80048; 81001; 81003; 81015; 85025; 87086; A4216; A4353; J0696; J1650; J3370; J7050

== ENCOUNTER 2018-06-16 12:53 | Outpatient (CLI) | payer OTHER ==
[2018-06-16 13:19] LABS: Hemoglobin 13.6 g/dL (12.0-16.0); Mean Corpuscular HGB CONC 32.5 g/dL (32.0-36.0); Mean Corpuscular Hemoglobin 27.2 pg (27.0-31.0); Mean Corpuscular Volume 83.6 fL (78.0-98.0); Mean Platelet Volume 7.7 fL (7.4-10.4); Platelet Count 288 thou/uL (130-400); RBC Distribution Width 11.6 % (11.5-14.5); Red Blood Cell (RBC) Count 5.01 mill/uL (4.20-5.40); White Blood Cell (WBC) Count 6.8 thou/uL (4.8-10.8)
[2018-06-16 13:24] LABS: INR-International Normal Ratio 1.1; PTT 32.2 SEC (22.9-36.1); Prothrombin Time 14.3 SEC (12.0-14.7)
[2018-06-16 13:26] LABS: BHCG - Serum Negative (NEGATIVE); Pregs Control Background? CLEAR/WHITE (CLR/WHITE); Pregs Control Bar Appear? YES (CONTROL BAR)
[2018-06-16 13:38] LABS: Anion Gap 13 mmol/L (10-20); BUN (Urea Nitrogen) 10 mg/dL (7.0-18.7); Calc. Creatinine Clearance 0 mL/min (70-130); Calcium 9.5 mg/dL (7.8-10.44); Carbon Dioxide 22 mmol/L (22-29); Chloride 106 mmol/L (98-107); Estimated GFR-MDRD 87; Glucose 78 mg/dL (70-105); Potassium 4.2 mmol/L (3.5-5.1); Sodium 137 mmol/L (136-145)
== END 2018-06-16 12:54 | disposition home or self-care (01) ==
LOC: LABBT 12:53
PROVIDERS: ATTEND Urology
DX: Z01.812 Encounter for preprocedural laboratory examination (principal); N20.0 Calculus of kidney; R35.0 Frequency of micturition; N39.0 Urinary tract infection, site not specified
CPT/HCPCS: 80048; 84703; 85027; 85610; 85730

== ENCOUNTER 2018-06-20 07:12 | Day surgery (SDC) | payer MEDICAID, OTHER ==
[2018-06-16 13:20] VITALS: BMI 25.9
[2018-06-20] MEDS ORDERED: Piperacillin/Tazobactam 3.375 GM in Sodium Chloride 0.9% 100 ML IVPB SCH (08:30)
[2018-06-20] MEDS ORDERED: Vancomycin HCl 1 GM in Premix Bag 1 BAG IVPB SCH (08:30)
[2018-06-20] MEDS ORDERED: Iothalamate Meglumine 60% 50 ML VIAL FS ONE (10:09)
[2018-06-20] MEDS ORDERED: Fentanyl 100 MCG/2 ML VIAL ONE (10:19)
[2018-06-20] MEDS ORDERED: Oxybutynin 5 MG TAB ONE (13:56)
[2018-06-20] MEDS ORDERED: Phenazopyridine HCl 97.5 MG TABLET ONE ×2 (13:57)
[2018-06-20] MEDS ORDERED: Promethazine HCl 25 MG/ML VIAL ONE (14:03)
--- NOTE | 2018-06-20 14:18 | OP ---
DATE OF PROCEDURE: 06/20/2018 PREOPERATIVE DIAGNOSES: A 27-year-old female with history of left partial staghorn: Stone moiety on CT measuring 2.4 x 2.4 cm in the left mid pole, left mid to lower pole 1.4 cm, lower pole 8 mm, 6-7 mm second stone, left proximal ureteral stone 8 mm. POSTOPERATIVE DIAGNOSES: A 27-year-old female with history of left partial staghorn: Stone moiety on CT measuring 2.4 x 2.4 cm in the left mid pole, left mid to lower pole 1.4 cm, lower pole 8 mm, 6-7 mm second stone, left proximal ureteral stone 8 mm. PROCEDURE: Cystoscopy, left retrograde pyelogram, flexible ureteroscopy, pyeloscopy, laser lithotripsy of ureteral, multiple large renal calculi consistent with partial staghorn, a 6 x 26 double-J ureteral stent exchange, laser lithotripsy. SURGEON: Sabra Aguirre D.O. ANESTHESIA: General. COMPLICATIONS: None apparent. DISPOSITION: Recovery room in stable condition. INDICATIONS FOR THE PROCEDURE: After an informed consent is signed, the patient is taken to the operating room, placed in a dorsal lithotomy position with the genital area prepped and draped in the usual surgical sterile fashion. Broad-spectrum antibiotics were provided. Preop urine culture negative. Risks and complications and indications for the procedure was reviewed with the patient in detail. Although I would prefer a percutaneous nephrolithotomy, previous perc access was deemed unfit as it traversed very close to the spleen. Moreover our Interventional Radiology felt that percutaneous access would be very difficult in this young lady with small body habitus and short stature. Therefore, we are resorting to ureteroscopy, laser lithotripsy with the full understanding that she will require multiple surgical interventions given stone size moiety and density. DESCRIPTION OF PROCEDURE: After an informed consent is signed, the patient is taken to the operating room, placed in a dorsal lithotomy position with the genital area prepped and draped in the usual surgical sterile fashion. A 21- Japanese cystoscope was utilized for cystoscopy. Preexisting ureteral stent was removed to the level of the meatus and a 0.35 sensor wire was passed into the left upper pole. At this time, a 10 Japanese dual-lumen access sheath was passed to the level of the proximal ureter where I was able to see the stone at the level of L2-L3 and a 0.35 Super Stiff was passed into the left upper pole and an 13/15 Japanese x 28 navigator was able to be passed just distal to the stone without significant issues as she had passive dilatation of the ureter from indwelling stent. A flexible ureteroscope was advanced. The stone appeared to be adherent at this level and using 365 micron laser fiber with the flexible ureteroscope we laser lithotripsied the stone and basket them rendering free. At this time, the scope was able to be passed into the renal pelvis and we appreciated a very large left renal stone with the staghorn component entering the renal pelvis and an acute angle. Using 365 micron laser fiber at 1.0 joules to 1.2 joules, we laser lithotripsied the stone. I was able to make significant progress on the main stem of the staghorn calculus involving the upper to mid pole branch component. We laser lithotripsied this rendering it free from the mid and upper pole infundibulum. We spent significant amount of time lasering this stone moiety. We then surveyed the lower pole in which we were able to appreciate the 8 mm stone in the lower pole, which was laser lithotripsied into multiple fragments. We then moved to the mid pole portion, we were able to see a second large nidus. Using 365 micron in all stone moieties, we were able to laser lithotripsy the stone as much as we could. At the end of the procedure given large stone burden fragmented, there were multiple dust-like stone debris therefore hindering further visualization. On fluoroscopy, the stone moiety were dispersed; however, there was probably fragments, we could basket; however, visualization became poor due to significant amount of stone debris. We did make significant progress in the stone. We spent significant amount of time laser lithotripsing the large stone burden. At this time, the procedure was terminated because of the fact that due to stone dust debris we were at this point hindering further visualization and felt that we made significant progress on most of the stone moiety. She will require a staged ureteroscopy, laser lithotripsy after clearing as much as she can from increasing fluids. The ureter was surveyed which demonstrated no evidence of ureteral injury. A 6 x 26 double-J ureteral stent was passed without difficulty with adequate redundancy in the bladder. She tolerated the procedure well. She is discharged with [place] 5/325, #30, Bactrim DS one p.o. b.i.d. for 7 days, Colace p.r.n. b.i.d. #30, AZO p.r.n., oxybutynin 10 mg XL 1 p.o. daily. She will follow up with me tomorrow with KUB an hour prior to appointment to schedule her staged ureteroscopy, laser lithotripsy in the next 2 weeks or so. MTDD
--- NOTE | 2018-06-20 14:37 | RAD ---
RETROGRADE PYELOGRAM: History: Left stent placement. FINDINGS: A series of five films show a left ureteral stent which is in satisfactory position on the final view s. Left renal calculi noted. IMPRESSION: Placement of left ureteral stent. POS: [facility]
[2018-06-20] MEDS ORDERED: Ondansetron HCl/PF 4 MG/2 ML Vial ONE (17:13)
[2018-06-20] MEDS ORDERED: Dexamethasone 20 MG/5 ML VIAL ONE (17:13)
[2018-06-20] MEDS ORDERED: PROPOFOL 200 MG/20 ML VIAL ONE (17:13)
== END 2018-06-20 16:25 | disposition home or self-care (01) ==
LOC: SDC 07:12
PROVIDERS: ATTEND Urology
PROC: 0TF48ZZ Fragmentation in Left Kidney Pelvis, Via Natural or Artificial Opening Endoscopic (ICD-10-PCS; principal; 2018-06-20)
PROC: 0T778DZ Dilation of Left Ureter with Intraluminal Device, Via Natural or Artificial Opening Endoscopic (ICD-10-PCS; principal; 2018-06-20)
DX: N20.2 Calculus of kidney with calculus of ureter (principal); N39.0 Urinary tract infection, site not specified; Z79.2 Long term (current) use of antibiotics; Z88.1 Allergy status to other antibiotic agents; Z91.018 Allergy to other foods
CPT/HCPCS: 74420; 96374; C1758; C1769; J1100; J2405; J2543; J2550; J2704; J3010; J3370; J7050; Q9961

== ENCOUNTER 2018-07-04 10:55 | Outpatient (CLI) | payer OTHER ==
[2018-07-04 12:08] LABS: Hemoglobin 12.3 g/dL (12.0-16.0); Mean Corpuscular Hemoglobin 26.6 pg (27.0-31.0); Mean Corpuscular Volume 83.1 fL (78.0-98.0); Mean Platelet Volume 7.8 fL (7.4-10.4); Platelet Count 238 thou/uL (130-400); RBC Distribution Width 11.7 % (11.5-14.5); Red Blood Cell (RBC) Count 4.64 mill/uL (4.20-5.40); White Blood Cell (WBC) Count 8.9 thou/uL (4.8-10.8)
[2018-07-04 12:14] LABS: BHCG - Serum Negative (NEGATIVE); Pregs Control Background? CLEAR/WHITE (CLR/WHITE); Pregs Control Bar Appear? YES (CONTROL BAR)
[2018-07-04 12:17] LABS: INR-International Normal Ratio 1.1; PTT 31.6 SEC (22.9-36.1)
[2018-07-04 12:27] LABS: Anion Gap 11 mmol/L (10-20); BUN (Urea Nitrogen) 13 mg/dL (7.0-18.7); Calc. Creatinine Clearance 0 mL/min (70-130); Carbon Dioxide 25 mmol/L (22-29); Chloride 108 mmol/L (98-107); Estimated GFR-MDRD Greater than 90; Glucose 87 mg/dL (70-105); Potassium 3.8 mmol/L (3.5-5.1); Sodium 140 mmol/L (136-145)
--- NOTE | 2018-07-04 13:55 | RAD ---
TWO VIEWS CHEST: Comparison: 05-24-18 History: Pre-operative radiograph. FINDINGS: Two views of the chest show normal sized cardiomediastinal silhouette. There is no evidence of consol idation, mass, or pleural effusion. The bones are unremarkable. IMPRESSION: No evidence of acute cardiopulmonary disease. POS: [facility]
--- NOTE | 2018-07-04 15:08 | EKG ---
Test Reason : Blood Pressure : / mmHG Vent. Rate : 063 BPM Atrial Rate : 063 BPM P-R Int : 158 ms QRS Dur : 082 ms QT Int : 364 ms P-R-T Axes : 027 089 032 degrees QTc Int : 372 ms Normal sinus rhythm Normal ECG When compared with ECG of 24-MAY-2018 14:59, No significant change was found Confirmed by SHARMILA FAYE ([id number]) on 07/04/2018 3:07:40 PM Referred By: JUDITH Confirmed By:SHARMILA FAYE
== END 2018-07-04 10:56 | disposition home or self-care (01) ==
LOC: LABBT 10:55
PROVIDERS: ATTEND Urology
DX: Z01.818 Encounter for other preprocedural examination (principal); N20.0 Calculus of kidney
CPT/HCPCS: 71046; 80048; 81001; 84703; 85027; 85610; 85730; 87086; 93005; 93010

== ENCOUNTER 2018-07-05 12:26 | Outpatient (CLI) | payer OTHER ==
--- NOTE | 2018-07-05 14:15 | RAD ---
KUB: HISTORY: Staghorn calculus. FINDINGS/IMPRESSION: Comparison is made with the exam of 05/23/2018. A left-sided ureteral stent is present. The previously noted nephroureteral stent has been replaced by the ureteral stent. Multiple large calculi in the left kidney are again seen. No calculi are see n along the course of the left ureter/stent. No suspicious calcifications are seen on the right. POS: [facility]
== END 2018-07-05 12:27 | disposition home or self-care (01) ==
LOC: RAD 12:26
PROVIDERS: ATTEND Urology
DX: N20.0 Calculus of kidney (principal); Z96.0 Presence of urogenital implants
CPT/HCPCS: 74018

== ENCOUNTER 2018-07-11 05:46 | Day surgery (SDC) | payer OTHER ==
[2018-07-04 11:29] VITALS: BMI 25.4
[2018-07-11] MEDS ORDERED: Fentanyl 100 MCG/2 ML VIAL ONE ×2 (06:53)
[2018-07-11] MEDS ORDERED: Piperacillin/Tazobactam 3.375 GM in Sodium Chloride 0.9% 100 ML IVPB SCH (07:00)
[2018-07-11] MEDS ORDERED: Midazolam HCl 2 mg/2 ml Vial ONE (07:05)
[2018-07-11] MEDS ORDERED: Iothalamate Meglumine 60% 50 ML VIAL FS ONE (07:25)
[2018-07-11] MEDS ORDERED: PROPOFOL 200 MG/20 ML VIAL ONE (09:18)
[2018-07-11] MEDS ORDERED: Ondansetron PF 4 MG/2 ML Vial ONE (09:18)
[2018-07-11] MEDS ORDERED: Glycopyrrolate 0.2 MG/ML 5 ML SYRINGE ONE (09:18)
[2018-07-11] MEDS ORDERED: Dexamethasone 20 MG/5 ML VIAL ONE (09:18)
[2018-07-11] MEDS ORDERED: Lidocaine 1% PF 5 ML VIAL ONE (09:18)
--- NOTE | 2018-07-11 09:30 | RAD ---
KUB 1 VIEW: HISTORY: A 27-year-old female for preoperative evaluation. COMPARISON: 06/08/2018. FINDINGS: Left ureteral stent in place with numerous left renal calculi. Multiple gallstones within the gallbl adder. Solid fecal material within the colon. No overt ureteral calculus. IMPRESSION: Extensive left renal calculi. Multiple gallstones. POS: [facility]
[2018-07-11] MEDS ORDERED: Oxybutynin 5 MG TAB ONE (10:04)
[2018-07-11] MEDS ORDERED: Phenazopyridine HCl 97.5 MG TABLET ONE ×2 (10:05)
--- NOTE | 2018-07-11 10:13 | OP ---
DATE OF PROCEDURE: 07/11/2018 PREOPERATIVE DIAGNOSES: This is a 27-year-old female with history of left staghorn calculi, status post ureteroscopy, laser lithotripsy. Stone moiety measurin.4 x 2.4 cm left mid pole, left mid to lower pole 1.4 cm, lower pole 8 mm, 6-7 mm second nidus, left proximal ureteral calculi 8 mm, treated and resolved. POSTOPERATIVE DIAGNOSES: This is a 27-year-old female with history of left staghorn calculi, status post ureteroscopy, laser lithotripsy. Stone moiety measurin.4 x 2.4 cm left mid pole, left mid to lower pole 1.4 cm, lower pole 8 mm, 6-7 mm second nidus, left proximal ureteral calculi 8 mm, treated and resolved. PROCEDURE: Cystoscopy, left retrograde pyelogram, rigid ureteroscopy, flexible ureteroscopy, pyeloscopy, laser lithotripsy, basket extraction of stone fragments, 6 x 26 double-J ureteral stent exchange. SURGEON: Sabra Aguirre D.O. ANESTHESIA: General. COMPLICATIONS: None apparent. SPECIMENS: Stone for chemical analysis. INDICATIONS FOR PROCEDURE AND HISTORY: Ms. Clark is a 27-year-old female who presented with history of fever, found to have a large left multiple staghorn calculi. She is currently undergoing staged intervention of her staghorn calculi with the full understanding she will require multimodality therapy, multiple surgical interventions as percutaneous nephrolithotomy was deemed difficult due to poor perc access. The patient is fully aware that given the stone size moiety that she will require multiple surgical interventions. Risks and complications including, but not limited to, bleeding, pain, infection, injury to adjacent organs, urosepsis, stricture formation staged intervention reviewed. All questions answered to her satisfaction and she desired to proceed. DESCRIPTION OF PROCEDURE: After an informed consent is signed, the patient taken to the operating room, placed in a dorsal lithotomy position. Bilateral CLAUDIA hose, SCDs, and broad-spectrum antibiotics were provided. Preop urine culture is negative. The patient was formally prepped and draped and using a 21 -Maltese cystoscope. We pulled a previous ureteral stent to the level of the meatus and a 0.35 sensor wire was placed into the left upper pole through the existing stent. The stent was then subsequently completely removed. The wire was secured for safety and we performed rigid ureteroscopy to the level of the proximal ureter. I did not see any stone nidus of concern. Therefore, the rigid ureteroscope was removed and a 10-Maltese dual-lumen access sheath was passed over the safety wire and a retrograde pyelogram performed. Confirming proper placement of our wires in the upper pole and a second working wire, 0.35 Super Stiff was placed. The dual-lumen access sheath was then removed and at this time a 13/15 Maltese x 28 cm navigator was able to be passed without difficulty as she was passively dilated. A flexible ureteroscope was passed over the wire to the level of the upper pole and the working wire was removed and the safety wire remained secured. We surveyed the collecting system which demonstrated good fragmentation of her multiple large staghorn calculi. There was some debris in the upper mid and lower pole and we lasered these further. Those that were amendable to be basket extracted were extracted and there were only few left that were large enough to basket. We laser lithotripsy what remained were dust-like debris, turning them into powder. I tried basketing these, but they were too small to basket. We did further laser lithotripsy these even smaller into powder like debris in the upper mid and lower pole. Of attention, the lower pole, there was moderate amount of layering fragmented dust -like debris. As previously noted, there appears to be a further stone nidus in the lower pole, which may have an anterior calyceal location as I am able to see just the edge of the stone; however, unable to engage despite using 200 micron laser fiber with the flexible ureteroscope. I lasered this flush to the area that I can see; however, further stone nidus was unable to be engaged with the basket or laser, therefore the procedure terminated. I further surveyed the collecting system. I did not see any obvious stone debris that warrants laser lithotripsy. Of note, there was approximately a 6 mm mid to upper pole stone which we did fine laser lithotripsy into tiny fragmented debris. We surveyed the residual smith and I did not see any further nidus amendable and approachable to laser lithotripsy. What remains are dust-like stone debris too small to basket. The ureter was surveyed when I injected contrast retrograde which demonstrated no evidence of extravasation. The ureteral mucosa demonstrated no evidence of perforation or extravasation of contrast or stone nidus of concern. The sheath was completely removed and a 6 x 26 double-J ureteral stent was replaced. The safety wire was then subsequently removed and bladder completely emptied. She is provided, [place] 5/325, #20, 1-2 p.o. q.6-8 hours p.r.n., VESIcare #10, 5 mg one p.o. daily, Colace 100 mg 1 p.o. b.i.d., Bactrim-DS 1 p.o. b.i.d. for 10 days, AZO p.r.n. She will follow up with me next , and our office will arrange a followup CAT scan. We are obtaining a CAT scan to stage the location of her residual stone nidus. If there is an anterior lower pole smith stone of substantial burden, I will discuss with patient regarding sandwich therapy with ESWL. Despite providing the patient a low dose prophylaxis of Bactrim single strength, she has not been taking it, therefore she will continue her full dose postop, until followup appointment. MTDD
--- NOTE | 2018-07-11 10:49 | RAD ---
RETROGRADE PYELOGRAM: History: Left renal Staghorn calculus. FINDINGS/IMPRESSION: Left ureteral stent in place. Retail Account Representative film reveals multiple somewhat faintly calcified opacities within the left kidney, unchanged from the KUB study of 07-11-18. Contrast was injected into the left upper collecting system. A sheath type catheter was placed and in traoperative imaging was performed. POS: [facility]
[2018-07-11] MEDS ORDERED: Promethazine HCl 25 MG/ML VIAL ONE (11:30)
[2018-07-15 10:21] LABS: Ammonium Acid Urate 35 % (.); CA Phosphate 43 % (.); Color Tan (.); Comment Comment: (.); Comment Note: (.); Mg Ammon Phos 20 % (.); Stone Weight 66.8 mg (.)
== END 2018-07-11 13:10 | disposition home or self-care (01) ==
LOC: SDC 05:46
PROVIDERS: ATTEND Urology
PROC: 0T778DZ Dilation of Left Ureter with Intraluminal Device, Via Natural or Artificial Opening Endoscopic (ICD-10-PCS; principal; 2018-07-11)
PROC: 0TF78ZZ Fragmentation in Left Ureter, Via Natural or Artificial Opening Endoscopic (ICD-10-PCS; principal; 2018-07-11)
DX: N20.2 Calculus of kidney with calculus of ureter (principal); N39.0 Urinary tract infection, site not specified; Z79.899 Other long term (current) drug therapy; Z88.1 Allergy status to other antibiotic agents
CPT/HCPCS: 74018; 74420; 82365; 88300; 96374; C1758; C1769; J2250; J2543; J2550; J3010; J3370; J7050; Q9961

== ENCOUNTER 2018-07-20 12:41 | Outpatient (CLI) | payer OTHER ==
--- NOTE | 2018-07-20 15:19 | CT ---
CT ABDOMEN AND PELVIS WITHOUT CONTRAST: HISTORY: Staghorn calculus. COMPARISON: 06/04/2018. FINDINGS: Absence of oral and IV contrast reduces the sensitivity of the exam, particularly for evaluation of s olid organs involved. A left-sided ureteral stent is again seen. No calculi are seen along the stent. There are multiple left renal calculi. The calculus burden in the left kidney has decreased in the interim. The large Staghorn calculus in the left kidney is no longer identified. No hydroureteral nephrosis is noted on either side. No calculi are seen in the right kidney, right ureter, or the urinary bladder. Multiple gallstones are again seen. No free air or free fluid is noted in the abdomen or pelvis. Ut erus and ovaries are present. There is fecal material in the colon and rectum. A normal-appearing a ppendix is seen. No acute osseous abnormalities identified. IMPRESSION: 1. Left renal calculi and left ureteral stent. Calculus burden in the left kidney has decreased sin ce 06/04/2018. 2. Cholelithiasis. POS: [facility]
== END 2018-07-20 12:42 | disposition home or self-care (01) ==
LOC: BICCT 12:41
PROVIDERS: ATTEND Urology
DX: N20.0 Calculus of kidney (principal); K80.20 Calculus of gallbladder without cholecystitis without obstruction; Z96.0 Presence of urogenital implants
CPT/HCPCS: 74176

== ENCOUNTER 2018-07-21 12:22 | Outpatient (CLI) | payer OTHER ==
--- NOTE | 2018-07-21 14:18 | RAD ---
RADIOGRAPH ABDOMEN 1 VIEW: DATE: 07/21/2018. HISTORY: A 27-year-old female with calculus of kidney. COMPARISON: KUB of 07/11/2018. FINDINGS: Left ureteral stent remains. Again noted are the multiple moderately large calculi at the level lashay l lower pole. One of these calculi, measuring approximately 13 x 10 mm, has migrated to a position m edial to the upper portion of the ureteral stent. IMPRESSION: 1. Left ureteral stent. 2. Left nephrolithiasis with several moderate to large left renal calculi. 3. One of these calculi has apparently migrated medially and superiorly. POS: [facility]
== END 2018-07-21 12:23 | disposition home or self-care (01) ==
LOC: RAD 12:22
PROVIDERS: ATTEND Urology
DX: N20.0 Calculus of kidney (principal); Z96.0 Presence of urogenital implants
CPT/HCPCS: 74018

== ENCOUNTER 2018-07-25 09:49 | Outpatient (CLI) | payer OTHER ==
[2018-07-25 10:53] LABS: Hemoglobin 13.4 g/dL (12.0-16.0); Mean Corpuscular HGB CONC 32.3 g/dL (32.0-36.0); Mean Corpuscular Hemoglobin 26.9 pg (27.0-31.0); Mean Corpuscular Volume 83.2 fL (78.0-98.0); Mean Platelet Volume 8.2 fL (7.4-10.4); Platelet Count 270 thou/uL (130-400); RBC Distribution Width 12.1 % (11.5-14.5); Red Blood Cell (RBC) Count 4.98 mill/uL (4.20-5.40); White Blood Cell (WBC) Count 9.3 thou/uL (4.8-10.8)
[2018-07-25 10:58] LABS: INR-International Normal Ratio 1.1; PTT 30.5 SEC (22.9-36.1)
[2018-07-25 11:00] LABS: BHCG - Serum Negative (NEGATIVE); Pregs Control Background? CLEAR/WHITE (CLR/WHITE); Pregs Control Bar Appear? YES (CONTROL BAR)
[2018-07-25 11:09] LABS: Anion Gap 11 mmol/L (10-20); BUN (Urea Nitrogen) 16 mg/dL (7.0-18.7); Calc. Creatinine Clearance 0 mL/min (70-130); Calcium 9.3 mg/dL (7.8-10.44); Carbon Dioxide 23 mmol/L (22-29); Chloride 106 mmol/L (98-107); Estimated GFR-MDRD Greater than 90; Glucose 89 mg/dL (70-105); Sodium 136 mmol/L (136-145)
--- NOTE | 2018-07-25 13:18 | RAD ---
KUB: 07/25/2018 HISTORY: Staghorn calculus, preoperative patient, COMPARISON: 07/21/2018 FINDINGS: There is a double-J ureteral stent present on the left. In the expected location of the lower pole l eft kidney, there is a calcification, measuring up to 2.4 cm, suggesting significant stone disease wi thin the left lower pole. Just above this, overlying the left 11th rib, is an 8 mm calcification, co nsistent with an additional tone. This is smaller than on the prior examination, at which time it me asured 1.5 cm. On the prior examination, there was a stone overlying the medial aspect of the left 1 2th rib, no longer present. The double-J ureteral stent on the left is in a stable position. No dis crete calcification is seen along the course of the stent. Faint calcification is noted in the right upper quadrant, likely on the basis of cholelithiasis. IMPRESSION 1. Residual stone disease within the left kidney, improved when compared to the 07/21/2018 examinati on. 2. Stable left double-J ureteral stent. 3. Calcification, right upper quadrant, suggesting cholelithiasis. POS: [facility]
== END 2018-07-25 09:50 | disposition home or self-care (01) ==
LOC: LABBT 09:49
PROVIDERS: ATTEND Urology
DX: Z01.812 Encounter for preprocedural laboratory examination (principal); N20.0 Calculus of kidney; Z96.0 Presence of urogenital implants
CPT/HCPCS: 74018; 80048; 81001; 84703; 85027; 85610; 85730; 87086

== ENCOUNTER 2018-08-08 05:51 | Day surgery (SDC) | payer OTHER ==
[2018-07-25 10:03] VITALS: BMI 27.1
[2018-08-08] MEDS ORDERED: Midazolam HCl 2 mg/2 ml Vial ONE (06:22)
[2018-08-08] MEDS ORDERED: Fentanyl 250 MCG/5 ML VIAL ONE (06:22)
[2018-08-08] MEDS ORDERED: Piperacillin/Tazobactam 3.375 GM in Sodium Chloride 0.9% 100 ML IVPB SCH (06:30)
[2018-08-08] MEDS ORDERED: Iothalamate Meglumine 60% 50 ML VIAL FS ONE ×3 (07:15→09:09)
--- NOTE | 2018-08-08 08:01 | RAD ---
SUPINE KUB: DATE: 08/08/2018. COMPARISON: 07/25/2018. HISTORY: Evaluate staghorn calculus. FINDINGS: There is a stable left-sided double-J ureteral stent. The bowel gas pattern is nonobstructed. [place] us structures demonstrate no acute findings. There are 2 separate calcifications in the left upper quadrant suggesting left renal stones. The mor e inferior calcification measures 2.8 x 1.6 cm and just above this there is a calcification partially obscured by the 12th rib on the left measuring 8 mm. IMPRESSION: Left-sided nephrolithiasis as detailed above. POS: [facility]
[2018-08-08] MEDS ORDERED: Oxybutynin 5 MG TAB ONE (11:27)
[2018-08-08] MEDS ORDERED: Phenazopyridine HCl 97.5 MG TABLET ONE (11:27)
[2018-08-08] MEDS ORDERED: Promethazine HCl 25 MG/ML VIAL ONE (11:31)
[2018-08-08] MEDS ORDERED: Meperidine HCl/PF 25 MG/ML VIAL ONE (11:40)
--- NOTE | 2018-08-08 12:06 | RAD ---
RETROGRADE IVP: Comparison: 07-11-18 History: Staghorn calculi. FINDINGS/IMPRESSION: Limited intraoperative fluoroscopic views from retrograde IVP were submitted for interpretation. A do uble J ureteral stent is seen on the left. There is a large Staghorn calculus projecting over the low er pole of the left kidney. A retrograde device is placed in the region of this calcification and the last image shows likely fragmentation of this calcification. POS: [facility]
[2018-08-08] MEDS ORDERED: Glycopyrrolate 0.2 MG/ML 5 ML SYRINGE ONE (15:09)
[2018-08-08] MEDS ORDERED: PROPOFOL 200 MG/20 ML VIAL ONE (15:09)
[2018-08-08] MEDS ORDERED: Lidocaine 1% PF 5 ML VIAL ONE (15:09)
[2018-08-08] MEDS ORDERED: Ondansetron PF 4 MG/2 ML Vial ONE (15:09)
--- NOTE | 2018-08-10 16:52 | OP ---
DATE OF PROCEDURE: 08/08/2018 PREOPERATIVE DIAGNOSES: 1. 27-year-old female with history of left staghorn. 2. History of Methicillin-resistant Staphylococcus urinary tract infection with fever. 3. Status post ureteroscopy and pyeloscopy. POSTOPERATIVE DIAGNOSES: 1. 27-year-old female with history of left staghorn. 2. History of Methicillin-resistant Staphylococcus, urinary tract infection with fever. 3. Status post ureteroscopy and pyeloscopy. PROCEDURES PERFORMED: Cystoscopy, left retrograde pyelogram, 6 x 26 double-J ureteral stent exchange, flexible ureteroscopy, pyeloscopy, laser lithotripsy, basket extraction of stone fragments. ANESTHESIA: LMA, general. COMPLICATIONS: None apparent. DISPOSITION: To recovery room in stable condition. SPECIMENS: Stone for chemical analysis. INDICATION FOR PROCEDURE AND HISTORY: Ms. Clark is a pleasant 27-year-old female, who presented with Methicillin-resistant Staphylococcus urinary tract infection with fever. The patient presented with significant staghorn calculus. Her initial nephrostomy tube was traversing very close to the spleen, therefore, it was removed and she underwent stent. Unfortunately, given her body habitus, our Interventional Radiology felt that her percutaneous access will be very difficult given the stone locations, and proximity of her rib, and her vital structures such as spleen, therefore, we have been dealing with her stone with ureteroscopy and laser lithotripsy, with her full understanding that she will require multiple surgical intervention. We did make significant progress fragmenting a stone on our last ureteroscopy, however, CT demonstrated multiple stone nidus still of concern. We discussed the options of ESWL sandwich therapy; however, concern regarding lower stone clearance despite ESWL given the acute infundibular angle. She presents today for staged ureteroscopy, pyeloscopy. Risks and complications of the procedure were reviewed with her in detail including, but not limited to bleeding; pain; infection; injury to adjacent organs; urosepsis; ureteral, renal, and bladder injury; stricture formation; and sepsis. All questions were answered to her satisfaction and she desired to proceed without reservation. DESCRIPTION OF PROCEDURE: After an informed consent was signed, the patient was taken to the operating room and placed in the dorsal lithotomy position with the genital area prepped and draped in the usual surgical sterile fashion. She has had few KUBs with her CT scan recently. Her CT scan does demonstrate persistent stone nidus, however, the stone burden has improved. Per my review, there is an upper mid pole stone density of 1.6 and 1.1, lower pole stone nidus 1.5 cm, and a 9 mm anterior lower pole calyceal stone. On a KUB, the only stones I can visualize obviously is the mid to lower pole stone nidus measuring 1.3 cm, 1.3, 8 mm. Her stone morphology changes from KUB to KUB as the stone fragments are likely dust- like debris which settles in a different location with followup KUBs. Moreover his difficult to stage her left lower pole anterior stones KUB. Today's KUB demonstrates most of stone nidus in the lower pole moiety. There is a possible second nidus 8 mm in the mid pole. We placed her in the dorsal lithotomy position with the genital area prepped and draped in the usual surgical sterile fashion. Broad-spectrum antibiotics based on her prior urine culture with vancomycin and Zosyn was provided for broad-spectrum coverage. A 21-[place] cystoscope was utilized with cystoscopy. Upon entering the bladder, the bladder was grossly unremarkable with no stone nidus. The ureteral stone was removed to the level of the meatus. A 0.35 Sensor wire was then passed into the left upper pole and the stent completely removed. At this time, using a dual-lumen access sheath, we performed the retrograde pyelogram which demonstrates chronic hydronephrotic moiety. A second safety wire 0.35 Sensor wire was passed into the kidney without any problems. At this time, a 13/15-[place] African x 28-[place] navigator was placed to the level of the proximal ureter with ease. A flexible ureteroscope digital disposable scope was passed through the sheath into the ureter. There was a little hang up on the previous obstructing stones in the proximal ureter. I was able to bypass this atraumatically. There was no evidence of ureteral stone nidus. Upon entering the bladder, we surveyed the collecting system. We surveyed each calyces and a retrograde pyelogram was performed to ensure that we assessed all of her collecting system. She had most of the sedimentous debris in the mid pole, again lower pole stone debris was noted. On prior ureteroscopy, I was unable to engage the anterior calyceal stone in the lower pole and I was unable to see the edge of this as previous. I attempted again as I had more range of motion with the digital disposable ureteroscope, however, despite the ureteroscope, I was unable to engage successfully; therefore, I did not further proceed as it was unapproachable by ureteroscopic access. We spent sometime basket extracting the mid to lower pole stone nidus. The stone nidus is dust-like debris as previously noted. I tried to basket extract these as much as we could, however, it was very difficult given the dust-like stone debris. Therefore, I did irrigate the collecting system and most of the stone debris did migrate into the upper and mid pole, which was more approachable to basket as they became adherent together. We spent significant amount of time basket extracting the stone niduses. A large amount of the stones were adherent to clot debris, which was evacuated as much as we could. There appeared to be a moderate-sized clot in the left mid pole, which may also include a stone; however, I did not feel comfortable lasering this aggressively as I cannot visualize clearly the interface of stone versus calyx. We tried to basket extract the clot-like debris; however, this was not successful. We did basket extract significant amount of debris; however, patient still has significant stone debris in the mid to lower pole, which I am unable to access. We surveyed the ureter, which demonstrated no evidence of ureteral perforation. There was a little bit of an edema at the level of her previous obstructing stone in the proximal left ureter; however, I did not see any stone nidus and I was able to pass the scope with minimal resistance. A retrograde pyelogram was performed in the mid to distal ureter demonstrating no evidence of extravasation of contrast. The sheath was then completely removed, and a 6 x 26 double-J ureteral stent was removed without difficulty. As I did basket extract a moderate amount of stone debris, I will encourage the patient to drink plenty of liquids, i.e., water and restaging CT will be performed in 2 weeks. As ureteroscopy approach is quite cumbersome to approach her calyxes as well, moreover percutaneous access into the lower pole is quite cumbersome given anterior calyceal location, I will discuss with the patient regarding possible referral to a tertiary care as she may require multiple mini perc access to proceed in a higher volume percutaneous access. She was discharged with Macrobid 100 mg p.o. b.i.d. for five days and we will transition back to her prophylactic bactrim single strength one p.o. daily. Colace refill provided and a short course of [place] is provided due to her immediate postoperative course, #20 of [place] 5/325. She will follow up with me in 2 weeks [address] a [address] scan to be obtained. Job ID: [id number] MTDD
[2018-08-12 09:23] LABS: CA Phosphate 88 % (.); Color Tan (.); Stone Weight 165.5 mg (.)
== END 2018-08-08 14:15 | disposition home or self-care (01) ==
LOC: SDC 05:51
PROVIDERS: ATTEND Urology
PROC: 0TC78ZZ Extirpation of Matter from Left Ureter, Via Natural or Artificial Opening Endoscopic (ICD-10-PCS; principal; 2018-08-08)
PROC: 0T778DZ Dilation of Left Ureter with Intraluminal Device, Via Natural or Artificial Opening Endoscopic (ICD-10-PCS; principal; 2018-08-08)
DX: N13.2 Hydronephrosis with renal and ureteral calculous obstruction (principal); N39.0 Urinary tract infection, site not specified; B95.62 Methicillin resistant Staphylococcus aureus infection as the cause of diseases classified elsewhere; Z88.1 Allergy status to other antibiotic agents; Z91.09 Other allergy status, other than to drugs and biological substances; Z79.2 Long term (current) use of antibiotics; Z79.899 Other long term (current) drug therapy; Z98.890 Other specified postprocedural states
CPT/HCPCS: 74018; 74420; 82365; 88300; 96374; C1758; C1769; J2001; J2175; J2250; J2405; J2543; J2550; J2704; J3010; J3370; J7050; Q9961

== ENCOUNTER 2018-08-22 10:44 | Outpatient (CLI) | payer OTHER ==
--- NOTE | 2018-08-22 14:23 | CT ---
NONCONTRAST ENHANCED CT ABDOMEN AND PELVIS: Date: 08/22/18 HISTORY: History of staghorn calculus. FINDINGS: CT images of abdomen and pelvis are obtained. Comparison made to previous exam from 07/20/18. CT images demonstrate the lung bases to be unremarkable. Numerous gallstones seen. No evidence of free intraperitoneal air seen. The liver and spleen are unremarkable. The pancreas is unremarkable. Adrenal glands unremarkable. The right kidney is unremarkable. There is a left ureteral stent in place. Multiple areas of calculi seen in the lower pole of the left kidney. Mild left-sided hydronephrosis seen in the lower pole calices. No evidence of bladder calculi seen. IMPRESSION: 1. Left ureteral stent in place. 2. Calculi seen in the lower pole of the left kidney with some moderate mid and lower caliceal dilat ation. No significant interval change is seen since the previous comparison CT from approximately 1 m onth earlier. POS: [facility]
== END 2018-08-22 10:45 | disposition home or self-care (01) ==
LOC: BICCT 10:44
PROVIDERS: ATTEND Urology
DX: N13.2 Hydronephrosis with renal and ureteral calculous obstruction (principal); Z96.0 Presence of urogenital implants
CPT/HCPCS: 74176